=== PATIENT | female | born 1990 | race Hispanic/Latino ===

== ENCOUNTER 2022-06-08 17:29 | Inpatient (IN) | payer OTHER ==
[~2022-06-08] VITALS: Ht 152.4 cm; Wt 127.0 kg
[2022-06-08] MEDS ORDERED: ACETAMINOPHEN 500 MG TABLET PO ONE (19:30)
[2022-06-08] MEDS ORDERED: ONDANSETRON 4MG INJ IVP ONE (19:30)
[2022-06-08] MEDS ORDERED: 0.9%NACL 1000ML 1,000 ML IV ONE (19:30)
[2022-06-08 19:37] LABS: BASOPHILS % (AUTO) 0.2 % (0.0-5.0); EOSINOPHILS % (AUTO) 1.6 % (0.0-8.0); HEMATOCRIT 40.4 % (36-48); LYMPHOCYTES % (AUTO) 17.7 % (21.0-51.0); MEAN CORPUSCULAR HEMOGLOBIN 25.2 pg (27.0-33.0); MEAN CORPUSCULAR HGB CONC 31.4 g/dL (32.0-36.0); MEAN CORPUSCULAR VOLUME 80.3 fL (79-99); MONOCYTES % (AUTO) 4.2 % (3.0-13.0); NEUTROPHILS % (AUTO) 75.7 % (40.0-77.0); PLATELET COUNT (AUTO) 366 K/uL (130-400); RED BLOOD CELL COUNT(AUTO) 5.03 MIL/uL (4.00-5.50); RED CELL DISTRIBUTION WIDTH 13.7 % (11.0-15.5); WHITE BLOOD COUNT (AUTO) 13.2 K/uL (4.8-10.8)
[2022-06-08 19:43] LABS: APPEARANCE,URINE CLEAR (CLEAR); BILIRUBIN,URINE NEGATIVE (NEGATIVE); COLOR,URINE LIGHT-YELLOW (YELLOW); GLUCOSE, URINE (UA) NEGATIVE (NEGATIVE); KETONES,URINE NEGATIVE (NEGATIVE); LEUKOCYTE ESTERASE ,URINE NEGATIVE Leu/uL (NEGATIVE); NITRATE,URINE NEGATIVE (NEGATIVE); OCCULT BLOOD,URINE NEGATIVE (NEGATIVE); PROTEIN,URINE NEGATIVE (NEGATIVE); UROBILINOGEN,URINE 0.2 mg/dL (0.2-1.0)
[2022-06-08] MEDS ORDERED: ACETAMINOPHEN 325 MG TAB PO ONE (20:00)
[2022-06-08 20:07] LABS: ALBUMIN 3.5 g/dL (3.5-5.0); CREATININE 0.8 mg/dL (0.5-1.5); POTASSIUM 3.6 mmol/L (3.5-5.1)
[2022-06-09] MEDS ORDERED: MORPHINE 2 MG SYG IV PRN
[2022-06-09] MEDS ORDERED: ONDANSETRON 4MG INJ IV PRN
[2022-06-09] MEDS ORDERED: MORPHINE 4 MG SYG IV PRN
[2022-06-09] MEDS: LACTATED RINGERS 1000ML 1,000 ML IV SCH ×3 (00:31→16:39)
[2022-06-09 02:26] VITALS: BP 126/73
[2022-06-09 04:34] LABS: BASOPHILS % (AUTO) 0.4 % (0.0-5.0); EOSINOPHILS % (AUTO) 2.1 % (0.0-8.0); HEMATOCRIT 34.7 % (36-48); LYMPHOCYTES % (AUTO) 25.2 % (21.0-51.0); MEAN CORPUSCULAR HEMOGLOBIN 25.3 pg (27.0-33.0); MEAN CORPUSCULAR HGB CONC 31.1 g/dL (32.0-36.0); MEAN CORPUSCULAR VOLUME 81.3 fL (79-99); MONOCYTES % (AUTO) 5.2 % (3.0-13.0); NEUTROPHILS % (AUTO) 66.5 % (40.0-77.0); PLATELET COUNT (AUTO) 273 K/uL (130-400); RED BLOOD CELL COUNT(AUTO) 4.27 MIL/uL (4.00-5.50); RED CELL DISTRIBUTION WIDTH 13.8 % (11.0-15.5); WHITE BLOOD COUNT (AUTO) 9.6 K/uL (4.8-10.8)
[2022-06-09 04:49] LABS: INR 0.98 (0.85-1.15); PROTHROMBIN TIME 10.7 SEC (9.6-11.6)
[2022-06-09 04:50] LABS: PARTIAL THROMBOPLASTIN TIME 33.9 SEC (26.3-35.5)
[2022-06-09 05:02] LABS: CREATININE 0.6 mg/dL (0.5-1.5); MAGNESIUM 1.9 mg/dL (1.80-2.40); PHOSPHORUS 3.8 mg/dL (2.5-4.9); POTASSIUM 3.8 mmol/L (3.5-5.1)
[2022-06-09] MEDS: ZOSYN 3.375GM+NS 50ML 50 ML IV SCH ×3 (05:02→21:07)
[2022-06-09] MEDS: ACETAMINOPHEN 325 MG TAB PO PRN ×2 (07:13→21:15)
[2022-06-09 07:25] VITALS: BP 106/65
[2022-06-09] MEDS: FAMOTIDINE 20MG TAB PO SCH ×2 (09:22→21:07)
[2022-06-09 13:12] VITALS: BP 104/56
[2022-06-09 16:21] VITALS: BP 120/76
[2022-06-09] MEDS ORDERED: PSYLLIUM SEED 1 EACH PACKET PO PRN (18:00)
[2022-06-09 19:20] VITALS: BP 140/63
[2022-06-10 00:03] VITALS: BP 120/66
[2022-06-10 03:16] VITALS: BP 125/67
[2022-06-10] MEDS: ZOSYN 3.375GM+NS 50ML 50 ML IV SCH (04:50)
[2022-06-10 07:00] LABS: BASOPHILS % (AUTO) 0.4 % (0.0-5.0); EOSINOPHILS % (AUTO) 2.8 % (0.0-8.0); HEMATOCRIT 34.9 % (36-48); MEAN CORPUSCULAR HGB CONC 30.7 g/dL (32.0-36.0); MEAN CORPUSCULAR VOLUME 81.5 fL (79-99); MONOCYTES % (AUTO) 6.1 % (3.0-13.0); NEUTROPHILS % (AUTO) 62.3 % (40.0-77.0); PLATELET COUNT (AUTO) 287 K/uL (130-400); RED BLOOD CELL COUNT(AUTO) 4.28 MIL/uL (4.00-5.50); RED CELL DISTRIBUTION WIDTH 13.7 % (11.0-15.5); WHITE BLOOD COUNT (AUTO) 7.5 K/uL (4.8-10.8)
[2022-06-10 07:09] LABS: CREATININE 0.8 mg/dL (0.5-1.5); POTASSIUM 4.5 mmol/L (3.5-5.1)
[2022-06-10 07:16] VITALS: BP 101/76
[2022-06-10] MEDS: FAMOTIDINE 20MG TAB PO SCH (08:20)
[2022-06-10] MEDS ORDERED: AMOX1TAB16 PO (09:26)
[2022-06-10 11:53] VITALS: BP 109/66
[2022-06-10] MEDS: ACETAMINOPHEN 325 MG TAB PO PRN (12:52)
== END 2022-06-10 13:20 | disposition home or self-care (01) | DRG 392 ==
LOC: EDH 17:29 → EDHIP 17:30 → WSH 06-09 02:25
PROVIDERS: ADMIT Internal Medicine; ATTEND Internal Medicine
DX: K57.32 Diverticulitis of large intestine without perforation or abscess without bleeding (principal); Z68.43 Body mass index [BMI] 50.0-59.9, adult; Z20.822 Contact with and (suspected) exposure to COVID-19; E66.01 Morbid (severe) obesity due to excess calories; Z56.0 Unemployment, unspecified
CPT/HCPCS: 36415; 72192; 74150; 80048; 80053; 81003; 81025; 83690; 83735; 84100; 85025; 85610; 85730; 86850; 86900; 86901; 87040; 87077; 87186; 87635; 87804; 93005; C9803; G0378; J2405; J2543; J7030; J7120

== ENCOUNTER 2022-11-19 21:38 | Emergency (ER) | payer MEDICAID ==
[~2022-11-19 21:38] MED LIST: AMOX1TAB16 PO; IBUP-2070 PO; ONDA4TAB10 PO
== END 2022-11-19 23:12 | disposition left against medical advice (07) ==
LOC: EDH 21:38
DX: R51.9 Headache, unspecified (principal); Z53.21 Procedure and treatment not carried out due to patient leaving prior to being seen by health care provider

== ENCOUNTER 2023-03-15 10:29 | Emergency (ER) | payer MEDICAID ==
[~2023-03-15] VITALS: Ht 154.9 cm; Wt 122.5 kg
[2023-03-15 11:02] LABS: BASOPHILS # (AUTO) 0.03 K/uL (0.00-0.20); BASOPHILS % (AUTO) 0.4 % (0.0-5.0); EOSINOPHILS # (AUTO) 0.13 K/uL (0.00-0.70); EOSINOPHILS % (AUTO) 1.7 % (0.0-8.0); HEMATOCRIT 38.3 % (36-48); IMMATURE GRANULOCYTE ABSOLUTE 0.04 K/uL (0-1); LYMPHOCYTES # (AUTO) 2.2 K/uL (1.0-4.8); LYMPHOCYTES % (AUTO) 28.4 % (21.0-51.0); MEAN CORPUSCULAR HEMOGLOBIN 24.7 pg (27.0-33.0); MEAN CORPUSCULAR HGB CONC 31.1 g/dL (32.0-36.0); MEAN CORPUSCULAR VOLUME 79.6 fL (79-99); MONOCYTES # (AUTO) 0.4 K/uL (0.1-1.0); MONOCYTES % (AUTO) 5.1 % (3.0-13.0); NEUTROPHILS # (AUTO) 4.9 K/uL (1.8-7.7); NEUTROPHILS % (AUTO) 63.9 % (40.0-77.0); PLATELET COUNT (AUTO) 314 K/uL (130-400); RED BLOOD CELL COUNT(AUTO) 4.81 MIL/uL (4.00-5.50); RED CELL DISTRIBUTION WIDTH 13.9 % (11.0-15.5); WHITE BLOOD COUNT (AUTO) 7.7 K/uL (4.8-10.8)
[2023-03-15 11:05] LABS: BILIRUBIN,URINE NEGATIVE (NEGATIVE); COLOR,URINE YELLOW (YELLOW); GLUCOSE, URINE (UA) NEGATIVE (NEGATIVE); KETONES,URINE NEGATIVE (NEGATIVE); LEUKOCYTE ESTERASE ,URINE 25 Leu/uL (NEGATIVE); NITRATE,URINE NEGATIVE (NEGATIVE); OCCULT BLOOD,URINE NEGATIVE (NEGATIVE); PH,URINE 5.5 (5.0-8.0); PROTEIN,URINE NEGATIVE (NEGATIVE); UROBILINOGEN,URINE 0.2 mg/dL (0.2-1.0)
[2023-03-15 11:07] LABS: ADD UA MICROSCOPIC YES; APPEARANCE,URINE HAZY (CLEAR)
[2023-03-15 11:08] LABS: HCG,QUALITATIVE URINE NEGATIVE (NEGATIVE)
[2023-03-15 11:10] LABS: BACTERIA,URINE RARE /HPF (None Seen); MUCUS,URINE RARE LPF (None Seen); RBC,URINE 0-1 /HPF (0-1); SQUAMOUS EPITHELIAL CELL,UR MANY /HPF (0-2)
[2023-03-15 11:12] LABS: CREATININE 0.8 mg/dL (0.5-1.5); POTASSIUM 3.5 mmol/L (3.5-5.1)
[2023-03-15 11:22] LABS: ALBUMIN 3.1 g/dL (3.5-5.0); BILIRUBIN,TOTAL 0.3 mg/dL (0.2-1.0); TOTAL PROTEIN, SERUM 7.7 g/dL (6.0-8.3)
[2023-03-15] MEDS ORDERED: ONDANSETRON 4MG INJ IVP ONE (11:30)
[2023-03-15] MEDS ORDERED: 0.9%NACL 1000ML 1,000 ML IV ONE (11:30)
[2023-03-15] MEDS ORDERED: MORPHINE 4 MG SYG IVP ONE (11:30)
[2023-03-15 11:44] VITALS: BP 112/67; PULSE 77; RESP 16; O2SAT 100
[2023-03-15] MEDS ORDERED: IOHEXOL-350 75 ML VIAL IV ONE (11:50)
[2023-03-15] MEDS ORDERED: CEPH500B PO (12:36)
[2023-03-15] MEDS ORDERED: FAMO20TA8 PO (12:36)
== END 2023-03-15 12:58 | disposition home or self-care (01) ==
LOC: EDH 10:29
DX: K57.30 Diverticulosis of large intestine without perforation or abscess without bleeding (principal); N39.0 Urinary tract infection, site not specified; Z98.890 Other specified postprocedural states; Z79.899 Other long term (current) drug therapy
CPT/HCPCS: 99285; 74177; 96374; 96361; 96375; 82270; 82550; 83874; 84484; 80053; 83690; 85025; 86850; 86900; 86901; 83605; 81001; 81025; 36415; 93005; J7030; J2405; J2270; Q9967

== ENCOUNTER 2023-06-20 06:07 | Emergency (ER) | payer MEDICAID ==
[~2023-06-20] VITALS: Ht 154.9 cm; Wt 125.6 kg
[~2023-06-20 06:07] MED LIST changes: +CEPH500B PO; +FAMO20TA8 PO
[2023-06-20] MEDS ORDERED: ONDANSETRON 4MG INJ IVP ONE (06:30)
[2023-06-20 06:37] LABS: APPEARANCE,URINE CLEAR (CLEAR); BILIRUBIN,URINE NEGATIVE (NEGATIVE); COLOR,URINE LIGHT-YELLOW (YELLOW); GLUCOSE, URINE (UA) NEGATIVE (NEGATIVE); KETONES,URINE NEGATIVE (NEGATIVE); LEUKOCYTE ESTERASE ,URINE NEGATIVE Leu/uL (NEGATIVE); NITRATE,URINE NEGATIVE (NEGATIVE); OCCULT BLOOD,URINE NEGATIVE (NEGATIVE); PH,URINE 5.5 (5.0-8.0); PROTEIN,URINE NEGATIVE (NEGATIVE); UROBILINOGEN,URINE 0.2 mg/dL (0.2-1.0)
[2023-06-20 06:41] LABS: ADD UA MICROSCOPIC NO
[2023-06-20 06:42] LABS: BASOPHILS # (AUTO) 0.04 K/uL (0.00-0.20); BASOPHILS % (AUTO) 0.4 % (0.0-5.0); EOSINOPHILS # (AUTO) 0.14 K/uL (0.00-0.70); EOSINOPHILS % (AUTO) 1.3 % (0.0-8.0); HEMATOCRIT 41.4 % (36-48); IMMATURE GRANULOCYTE ABSOLUTE 0.07 K/uL (0-1); LYMPHOCYTES # (AUTO) 3.9 K/uL (1.0-4.8); LYMPHOCYTES % (AUTO) 36.2 % (21.0-51.0); MEAN CORPUSCULAR HEMOGLOBIN 25.1 pg (27.0-33.0); MEAN CORPUSCULAR HGB CONC 31.4 g/dL (32.0-36.0); MEAN CORPUSCULAR VOLUME 80.1 fL (79-99); MONOCYTES # (AUTO) 0.6 K/uL (0.1-1.0); MONOCYTES % (AUTO) 5.5 % (3.0-13.0); NEUTROPHILS % (AUTO) 55.9 % (40.0-77.0); PLATELET COUNT (AUTO) 350 K/uL (130-400); RED BLOOD CELL COUNT(AUTO) 5.17 MIL/uL (4.00-5.50); RED CELL DISTRIBUTION WIDTH 14.4 % (11.0-15.5); WHITE BLOOD COUNT (AUTO) 10.7 K/uL (4.8-10.8)
[2023-06-20 06:52] LABS: SARS-CoV-2, RNA, NAAT NEGATIVE SARS CoV-2 (NEGATIVE)
[2023-06-20 06:56] LABS: INFLUENZA TYPE A Negative For Type A (NEGATIVE); INFLUENZA TYPE B Negative For Type B (NEGATIVE)
[2023-06-20] MEDS ORDERED: DICYCLOMINE 20MG (10MG/ML) AMP IM STA (06:59)
[2023-06-20 07:00] LABS: ALBUMIN 3.2 g/dL (3.5-5.0); BILIRUBIN,TOTAL 0.4 mg/dL (0.2-1.0); CREATININE 0.7 mg/dL (0.5-1.5); POTASSIUM 3.7 mmol/L (3.5-5.1); TOTAL PROTEIN, SERUM 8.4 g/dL (6.0-8.3)
[2023-06-20] MEDS ORDERED: IOHEXOL-350 75 ML VIAL IV ONE (07:34)
[2023-06-20 08:09] VITALS: BP 133/79; PULSE 82; RESP 18; O2SAT 99
[2023-06-20] MEDS ORDERED: LOPE2 PO (09:45)
[2023-06-20] MEDS ORDERED: ONDA4TAB10 PO (09:45)
== END 2023-06-20 10:25 | disposition home or self-care (01) ==
LOC: EDH 06:07
DX: K52.9 Noninfective gastroenteritis and colitis, unspecified (principal); Z20.822 Contact with and (suspected) exposure to COVID-19
CPT/HCPCS: 99285; 74177; 96374; 87635; 80053; 83690; 85025; 87804 ×2; 81003; 81025; 36415; 96372; C9803; J2405; J0500; Q9967

== ENCOUNTER 2023-09-13 13:42 | Emergency (ER) | payer MEDICAID ==
[~2023-09-13] VITALS: Ht 154.9 cm; Wt 127.0 kg
[~2023-09-13 13:42] MED LIST changes: +LOPE2 PO
[2023-09-13 13:46] VITALS: BP 152/76; PULSE 97; RESP 18
[2023-09-13 14:29] LABS: BASOPHILS # (AUTO) 0.02 K/uL (0.00-0.20); BASOPHILS % (AUTO) 0.2 % (0.0-5.0); EOSINOPHILS % (AUTO) 1.2 % (0.0-8.0); HEMATOCRIT 37.8 % (36-48); IMMATURE GRANULOCYTE ABSOLUTE 0.03 K/uL (0-1); LYMPHOCYTES # (AUTO) 1.9 K/uL (1.0-4.8); LYMPHOCYTES % (AUTO) 23.8 % (21.0-51.0); MEAN CORPUSCULAR HEMOGLOBIN 24.2 pg (27.0-33.0); MEAN CORPUSCULAR HGB CONC 31.7 g/dL (32.0-36.0); MEAN CORPUSCULAR VOLUME 76.2 fL (79-99); MONOCYTES # (AUTO) 0.5 K/uL (0.1-1.0); MONOCYTES % (AUTO) 5.5 % (3.0-13.0); NEUTROPHILS # (AUTO) 5.6 K/uL (1.8-7.7); NEUTROPHILS % (AUTO) 68.9 % (40.0-77.0); PLATELET COUNT (AUTO) 321 K/uL (130-400); RED BLOOD CELL COUNT(AUTO) 4.96 MIL/uL (4.00-5.50); RED CELL DISTRIBUTION WIDTH 14.6 % (11.0-15.5); WHITE BLOOD COUNT (AUTO) 8.2 K/uL (4.8-10.8)
[2023-09-13] MEDS ORDERED: MORPHINE 2 MG SYG IVP ONE (14:30)
[2023-09-13] MEDS ORDERED: ONDANSETRON 4MG INJ IVP ONE (14:30)
[2023-09-13] MEDS ORDERED: 0.9%NACL 1000ML 1,000 ML IV ONE (14:30)
[2023-09-13 14:38] LABS: CREATININE 0.7 mg/dL (0.5-1.5); POTASSIUM 3.8 mmol/L (3.5-5.1)
[2023-09-13 14:43] LABS: BILIRUBIN,TOTAL 0.2 mg/dL (0.2-1.0); TOTAL PROTEIN, SERUM 7.5 g/dL (6.0-8.3)
== END 2023-09-13 18:38 | disposition left against medical advice (07) ==
LOC: EDH 13:42
DX: R10.32 Left lower quadrant pain (principal); Z53.21 Procedure and treatment not carried out due to patient leaving prior to being seen by health care provider
CPT/HCPCS: 36415; 80053; 83690; 84703; 85025; 99281

== ENCOUNTER 2023-12-09 00:11 | Emergency (ER) | payer MEDICAID ==
[~2023-12-09] VITALS: Ht 154.9 cm; Wt 129.7 kg
[~2023-12-09 00:11] MED LIST changes: +ONDA-243 PO; -ONDA4TAB10 PO
[2023-12-09 00:46] LABS: BASOPHILS # (AUTO) 0.04 K/uL (0.00-0.20); BASOPHILS % (AUTO) 0.4 % (0.0-5.0); EOSINOPHILS # (AUTO) 0.13 K/uL (0.00-0.70); EOSINOPHILS % (AUTO) 1.4 % (0.0-8.0); HEMATOCRIT 38.7 % (36-48); IMMATURE GRANULOCYTE ABSOLUTE 0.04 K/uL (0-1); LYMPHOCYTES # (AUTO) 2.4 K/uL (1.0-4.8); MEAN CORPUSCULAR VOLUME 77.4 fL (79-99); MONOCYTES # (AUTO) 0.6 K/uL (0.1-1.0); MONOCYTES % (AUTO) 6.3 % (3.0-13.0); NEUTROPHILS # (AUTO) 6.3 K/uL (1.8-7.7); NEUTROPHILS % (AUTO) 66.5 % (40.0-77.0); PLATELET COUNT (AUTO) 359 K/uL (130-400); RED CELL DISTRIBUTION WIDTH 14.4 % (11.0-15.5); WHITE BLOOD COUNT (AUTO) 9.5 K/uL (4.8-10.8)
[2023-12-09 00:48] LABS: ADD UA MICROSCOPIC YES; APPEARANCE,URINE CLOUDY (CLEAR); BILIRUBIN,URINE NEGATIVE (NEGATIVE); COLOR,URINE YELLOW (YELLOW); GLUCOSE, URINE (UA) NEGATIVE (NEGATIVE); KETONES,URINE NEGATIVE (NEGATIVE); LEUKOCYTE ESTERASE ,URINE NEGATIVE Leu/uL (NEGATIVE); NITRATE,URINE NEGATIVE (NEGATIVE); OCCULT BLOOD,URINE NEGATIVE (NEGATIVE); PROTEIN,URINE NEGATIVE (NEGATIVE)
[2023-12-09 00:49] LABS: BACTERIA,URINE FEW /HPF (None Seen); HCG,QUALITATIVE URINE NEGATIVE (NEGATIVE); MUCUS,URINE RARE LPF (None Seen); SQUAMOUS EPITHELIAL CELL,UR MANY /HPF (0-2)
[2023-12-09 01:05] LABS: CREATININE 0.8 mg/dL (0.5-1.0); POTASSIUM 3.9 mmol/L (3.5-5.1)
[2023-12-09 01:06] LABS: ALBUMIN 3.3 g/dL (3.5-5.0); BILIRUBIN,TOTAL 0.2 mg/dL (0.2-1.0); TOTAL PROTEIN, SERUM 8.2 g/dL (6.0-8.3)
[2023-12-09] MEDS: ONDANSETRON 4MG INJ IVP ONE (01:26)
[2023-12-09] MEDS: PANTOPRAZOLE 40 MG/VIAL IVP ONE (01:26)
[2023-12-09] MEDS: 0.9%NACL 1000ML 1,000 ML IV ONE (01:26)
[2023-12-09] MEDS: MORPHINE 4 MG SYG IVP ONE ×2 (01:27→06:18)
[2023-12-09] MEDS ORDERED: IOHEXOL 350 MG/ML 100ML INFUS..BTL IV ONE (01:38)
[2023-12-09 05:20] VITALS: BP 142/70; PULSE 88; RESP 20; O2SAT 97
[2023-12-09] MEDS: MORPHINE 5 MG/ML VIAL (5MG OR GREATER DOSE) ONE (06:18)
== END 2023-12-09 06:40 | disposition home or self-care (01) ==
LOC: EDH 00:11
DX: R10.30 Lower abdominal pain, unspecified (principal); K57.30 Diverticulosis of large intestine without perforation or abscess without bleeding
CPT/HCPCS: 99285; 74177; 96374; 96375; 80053; 83690; 85025; 81001; 81025; 36415; 96376; J2270 ×2; J7030; J2405; Q9967; S0164; C9113

== ENCOUNTER 2024-03-12 18:28 | Emergency (ER) | payer MEDICAID ==
[~2024-03-12] VITALS: Ht 154.9 cm; Wt 129.3 kg
[2024-03-12 18:59] LABS: BASOPHILS # (AUTO) 0.03 K/uL (0.00-0.20); BASOPHILS % (AUTO) 0.3 % (0.0-5.0); EOSINOPHILS # (AUTO) 0.16 K/uL (0.00-0.70); EOSINOPHILS % (AUTO) 1.6 % (0.0-8.0); HEMATOCRIT 38.7 % (36-48); IMMATURE GRANULOCYTE ABSOLUTE 0.05 K/uL (0-1); LYMPHOCYTES # (AUTO) 2.6 K/uL (1.0-4.8); LYMPHOCYTES % (AUTO) 25.8 % (21.0-51.0); MEAN CORPUSCULAR HEMOGLOBIN 22.8 pg (27.0-33.0); MEAN CORPUSCULAR HGB CONC 29.7 g/dL (32.0-36.0); MEAN CORPUSCULAR VOLUME 76.6 fL (79-99); MONOCYTES # (AUTO) 0.6 K/uL (0.1-1.0); MONOCYTES % (AUTO) 5.4 % (3.0-13.0); NEUTROPHILS # (AUTO) 6.8 K/uL (1.8-7.7); NEUTROPHILS % (AUTO) 66.4 % (40.0-77.0); PLATELET COUNT (AUTO) 373 K/uL (130-400); RED BLOOD CELL COUNT(AUTO) 5.05 MIL/uL (4.00-5.50); RED CELL DISTRIBUTION WIDTH 14.6 % (11.0-15.5); WHITE BLOOD COUNT (AUTO) 10.2 K/uL (4.8-10.8)
[2024-03-12 19:09] LABS: CREATININE 0.9 mg/dL (0.5-1.0)
[2024-03-12 19:13] LABS: ALBUMIN 3.2 g/dL (3.5-5.0); BILIRUBIN,DIRECT 0.1 mg/dL (0.0-0.3); BILIRUBIN,TOTAL 0.2 mg/dL (0.2-1.0)
[2024-03-12 20:22] LABS: APPEARANCE,URINE CLOUDY (CLEAR); BILIRUBIN,URINE NEGATIVE (NEGATIVE); COLOR,URINE LIGHT-YELLOW (YELLOW); GLUCOSE, URINE (UA) NEGATIVE (NEGATIVE); KETONES,URINE NEGATIVE (NEGATIVE); LEUKOCYTE ESTERASE ,URINE 25 Leu/uL (NEGATIVE); NITRATE,URINE NEGATIVE (NEGATIVE); OCCULT BLOOD,URINE SMALL (NEGATIVE); PH,URINE 5.5 (5.0-8.0); PROTEIN,URINE NEGATIVE (NEGATIVE); UROBILINOGEN,URINE 0.2 mg/dL (0.2-1.0)
[2024-03-12 20:27] LABS: ADD UA MICROSCOPIC YES
[2024-03-12 20:28] LABS: MUCUS,URINE RARE LPF (None Seen); SQUAMOUS EPITHELIAL CELL,UR FEW /HPF (0-2); YEAST,URINE BUDDING RARE /HPF (None Seen)
[2024-03-12] MEDS: ONDANSETRON ODT 4MG TAB SL SCH (21:15)
[2024-03-12] MEDS: ketOROlac 30MG VIAL (30MG/ML) IM ONE (21:16)
[2024-03-12] MEDS ORDERED: METR375C2 PO (21:49)
[2024-03-12] MEDS ORDERED: CIPR-278 PO (21:49)
[2024-03-12] MEDS: cefTRIAXone 1G VIAL IM ONE (22:00)
[2024-03-12 22:02] VITALS: BP 131/76; PULSE 84; RESP 18; TEMP 98.1; O2SAT 98
== END 2024-03-12 22:10 | disposition home or self-care (01) ==
LOC: EDH 18:28
DX: K57.32 Diverticulitis of large intestine without perforation or abscess without bleeding (principal); N39.0 Urinary tract infection, site not specified; R19.7 Diarrhea, unspecified; Z79.899 Other long term (current) drug therapy; Z98.890 Other specified postprocedural states
CPT/HCPCS: 99285; 74176; 80076; 80048; 84703; 85025; 81001; 36415; 96372 ×2; J0696; J1885

== ENCOUNTER 2024-06-20 09:29 | Emergency (ER) | payer SELFPAY ==
[~2024-06-20] VITALS: Ht 154.9 cm; Wt 133.9 kg
[~2024-06-20 09:29] MED LIST changes: +CIPR-278 PO; +METR375C2 PO
[2024-06-20] MEDS: acetaMINOPHEN 500 MG TABLET PO ONE (09:51)
--- NOTE | 2024-06-20 10:18 | HMCIMG ---
ELBOW COMP 3+VWS RT REASON: fall TECHNIQUE: 3 views were obtained. FINDINGS: There is no evidence of fracture or dislocation. There is no joint effusion. The soft tissues appear unremarkable. There is no evidence of a radiopaque foreign body. IMPRESSION: No acute findings.
[2024-06-20] MEDS ORDERED: NAPR-1505 PO (10:22)
--- NOTE | 2024-06-20 10:22 | ERN ---
General Chief Complaint: Upper Extremity Pain/Injury Stated Complaint: Right Arm INJURY Time Seen by MD: 09:30 Source: patient History of Present Illness Initial Comments Patient is a 33-year-old female coming in to be evaluated for right upper extremity pain. Patient is a bit earlier today she tripped landing on her outstretched hand. States that there is a discomfort in her right elbow as well as with the right wrist. Allergies: Coded Allergies: No Known Drug Allergies (Unverified Allergy, Unknown, 06/08/22) Home Meds Active Scripts Metronidazole (Flagyl) 375 Mg Capsule, 375 MG PO BID for 7 Days, #14 CAP Prov:SHANIQUE HELLER 03/12/24 Ciprofloxacin HCl (Cipro) 500 Mg Tablet, 1 TAB PO BID for 7 Days, #14 TAB 0 Refills Prov:SHANIQUE HELLER 03/12/24 Loperamide HCl (Imodium) 2 Mg Cap, 2 MG PO TID PRN for DIARRHEA, #15 CAP 0 Refills Prov:LISA LIZARRAGA MD 06/20/23 Ondansetron (Ondansetron Odt) 4 Mg Tab.rapdis, 4 MG PO TID PRN for NAUSEA, #30 TAB 0 Refills Prov:LISA LIZARRAGA MD 06/20/23 Famotidine (Famotidine) 20 Mg Tablet, 20 MG PO BID, #30 TAB Prov:CARL TOMAS 03/15/23 Cephalexin Monohydrate (Keflex) 500 Mg Cap, 500 MG PO QID for 7 Days, #28 CAP Prov:CARL TOMAS 03/15/23 Amoxicillin/Potassium Clav (Amox Tr-K Clv 875-125 mg Tab) 1 Each Tablet, 1 EACH PO BID for 7 Days, #14 TAB Prov:MEHREEN ROWLAND MD 09/09/22 Ondansetron (Ondansetron Odt) 4 Mg Tab.rapdis, 4 MG PO TID for NAUSEA, #15 TAB Prov:MEHREEN ROWLAND MD 09/09/22 Ibuprofen (Ibuprofen) 600 Mg Tablet, 600 MG PO Q6H PRN for PAIN, #30 TAB Prov:MEHREEN ROWLAND MD 09/09/22 Amoxicillin/Potassium Clav (Amox Tr-K Clv 875-125 mg Tab) 1 Each Tablet, 1 EACH PO BID for 7 Days, #14 TAB Prov:VIOLETTE AKUFMAN BALTAZAR 06/10/22 Past Medical History Past Medical History: Other Medical History Other: GASTRITIS Past Surgical History: Family History Family History: HTN Social History Social History: Negative, Lives with family Female( History) History: Not Applicable LMP: May 27, 2024 : 5 Para: 4 Aborts: 1 ROS Dictation CONSTITUTIONAL: No chills, no fever, no weakness, no diaphoresis, no malaise. HEAD/FACE: No signs of trauma. EENT: No eye pain, no blurred vision, no tearing, no double vision, no ear pain, no ear discharge, no nose pain, no nasal congestion, no throat pain, no throat swelling, no mouth pain. RESPIRATORY: No cough, no orthopnea, no SOB, no stridor, no wheezing. CARDIOVASCULAR: No chest pain, no edema, no palpitations, no syncope. GASTROINTESTINAL/ABDOMINAL: No abdominal pain, no constipation, no diarrhea, no nausea, no vomiting. GENITOURINARY: No abnormal discharge, no dysuria, no frequent urination, no hematuria. No complaints of pain in the genitals. MUSCULOSKELETAL: No back pain, no gout, joint pain, joint swelling, muscle pain, muscle stiffness, no neck pain. INTEGUMENTARY: No change in color, no change in hair/nails, no dryness, no lesion, no lumps, no rash. NEUROLOGICAL/PSYCH: No anxiety, not depressed, no emotional problem, no headache, no numbness, no pre-existing deficit, no history of seizures, no tremors, no weakness. HEMATOLOGIC/LYMPHATIC: Not anemic, no history of blood clots, no apparent bleeding, no bruising, glands not swollen. All Systems Negative, Except as Noted. Physical Exam Physical Exam Dictation VITAL SIGNS: Reviewed. GENERAL APPEARANCE: Alert, oriented x3, no acute distress, obese. HEAD AND FACE: Non-traumatic. EYES: PERRL, pink conjunctivas, eyelid no trauma, anterior chamber clear. EARS: Pinnas intact and no signs of trauma or erythema. Ear canals clear and no discharge. TMs no erythema. NOSE: No discharge, no bleeding. OROPHARYNX: Mouth normal, teeth no caries, tongue pink. Pharynx clear, no erythema. Tonsils no exudates, no abscesses noted. Mucous membrane moist. NECK: Supple, non-tender, no thyromegaly, no masses, no JVD, no bruits. BREAST: Deferred. CHEST: No tenderness, no crepitus, no paradoxical movement, no retractions. LUNGS: Clear, well-ventilated, symmetric, no rales, no wheezing, no rhonchi, no stridor, good breath sounds bilaterally. HEART: Regular rate, regular rhythm, no murmur, no gallops. VASCULAR: No peripheral edema. ABDOMEN: Soft, positive bowel sounds, nondistended, no guarding, nontender, no rebound, no masses no hepatomegaly, no splenomegaly, no Crowder's sign, no hernias. RECTAL: Deferred. GENITAL: Deferred. NEUROLOGICAL: Normal speech, gross motor function intact, gross sensory function intact. MUSCULOSKELETAL: Neck nontender, full range of motion, back nontender, full range of motion. EXTREMITIES: Nontender, full range of motion. Right wrist pain right elbow pa in, pain on flexion and extension. SKIN: Color pink, dry, no turgor, no rash, no lacerations, no abrasions, no contusions. LYMPHATICS: Deferred. Results Laboratory and Microbiology Labs Reviewed?: Yes EKG/XRAY/US/CT/MRI X-RAY Comment X-ray right wrist-possible radial fracture X-ray right elbow-NAD MDM MDM: Differential diagnosis: Right wrist fracture, right elbow fracture, elbow strain, Patient is a 33-year-old female coming in to be evaluated for right upper extremity pain. X-ray disclose the possible right radial fracture. Of the elbow within normal limits. Patient will be discharged with a diagnosis of radial fracture. Splint and sling are placed right upper extremity. Patient will be referred to PCP and/or airways control specialist. ED Course Orders Procedure Category Date Status Time Elbow Comp 3+Vws Rt RAD 06/20/24 Taken 09: Wrist Comp 3+Vws Rt RAD 06/20/24 Taken 09: Acetaminophen 500mg PHA 06/20/24 Complete Tab (Tylenol 500mg T 10:00 Current Medications Medications (Trade) Dose Ordered Sig/Rosas Route PRN Reason Start Time Stop Time Status Last Admin Dose Admin Acetaminophen (TYLenol 500MG TAB) 1,000 mg ONCE ONCE PO 06/20/24 10:00 06/20/24 10:01 DC 06/20/24 09:51 Vital Signs Date Time Temp Pulse Resp B/P (MAP) Pulse Ox O2 Delivery O2 Flow Rate FiO2 06/20/24 09:30 98.1 87 16 126/82 0 06/20/24 09:30 98.1 87 16 126/82 98 Room Air* 0 21 DX & DISP Disposition: Discharge Departure Impression: Primary Impression: Radial styloid fracture Additional Impression: Fall Condition: Stable Scripts Naproxen (Naproxen) 375 Mg Tablet. 375 MG PO BID for 7 Days, #14 TAB Prov: TOM DARDEN MD 06/20/24 Additional Instructions: FOLLOW-UP WITH PRIMARY CARE PROVIDER IN 1 TO 2 DAYS. TAKE MEDICATIONS DIRECTED HERE IN THE EMERGENCY ROOM. OKAY TO CONTINUE HOME MEDICATIONS UNLESS OTHERWISE DISCUSSED DURING YOUR VISIT IN THE EMERGENCY ROOM TODAY. RETURN TO YOUR NEAREST EMERGENCY ROOM IF SYMPTOMS WORSEN OR IF THERE IS NO IMPROVEMENT. CALL 911 IF YOU NEED IMMEDIATE ASSISTANCE. TAKE TYLENOL [id number] NEEDED AND IF NO CONTRAINDICATIONS ARE PRESENT. INCREASE ORAL HYDRATION. A WOUND CULTURE OR URINE CULTURE WAS ORDERED HERE IN THE EMERGENCY ROOM DEPARTMENT PLEASE FOLLOW-UP WITH PRIMARY CARE PROVIDER AND ADVISE THEM TO GET REPEAT PORTS FROM OUR FACILITY. IF YOU HAD ANY YUNG WRAP/SPLINTS THAT WERE APPLIED HERE, PLEASE DO NOT REMOVE THEM UNTIL YOU SEE YOUR PRIMARY CARE OR SPECIALTY. Referrals: Referrals: NONE (PCP) ZIGGY WARNER MD, LUIS A MD Time of Disposition: 10:21 TOM DARDEN MD Jun 20, 2024 10:22
[2024-06-20 10:31] VITALS: BP 129/75; PULSE 78; RESP 16; TEMP 98.1; O2SAT 98
== END 2024-06-20 10:34 | disposition home or self-care (01) ==
LOC: EDH 09:29
DX: S52.511A Displaced fracture of right radial styloid process, initial encounter for closed fracture (principal); W01.0XXA Fall on same level from slipping, tripping and stumbling without subsequent striking against object, initial encounter; Y93.89 Activity, other specified; Y92.89 Other specified places as the place of occurrence of the external cause; Y99.8 Other external cause status
CPT/HCPCS: 29125; 73080; 73110; 99284

== ENCOUNTER 2025-05-01 19:47 | Emergency (ER) | payer MEDICAID ==
[~2025-05-01] VITALS: Ht 154.9 cm; Wt 129.3 kg
[~2025-05-01 19:47] MED LIST changes: +IBUP-1492 PO; -IBUP-2070 PO; +NAPR-1505 PO
--- NOTE | 2025-05-01 19:51 | NUR ---
UA CUP PROVIDED
[2025-05-01 20:23] LABS: IMMATURE GRANULOCYTE ABSOLUTE 0.04 K/uL (0-1); NUCLEATED RED BLOOD CELLS 0.0 % (0.0-0.19); PLATELET COUNT (AUTO) 362 K/uL (130-400); RED BLOOD CELL COUNT(AUTO) 4.68 MIL/uL (4.00-5.50); RED CELL DISTRIBUTION WIDTH 17.2 % (11.0-15.5); WHITE BLOOD COUNT (AUTO) 8.7 K/uL (4.8-10.8)
[2025-05-01 20:26] LABS: APPEARANCE,URINE CLOUDY (CLEAR); GLUCOSE, URINE (UA) NEGATIVE (NEGATIVE); LEUKOCYTE ESTERASE ,URINE 25 Leu/uL (NEGATIVE); NITRATE,URINE NEGATIVE (NEGATIVE); OCCULT BLOOD,URINE NEGATIVE (NEGATIVE)
[2025-05-01 20:27] LABS: ADD UA MICROSCOPIC YES
[2025-05-01 20:29] LABS: SQUAMOUS EPITHELIAL CELL,UR FEW /HPF (0-2)
[2025-05-01 20:31] LABS: CREATININE 1.0 mg/dL (0.5-1.0); GLOMERULAR FILTR. RATE CALC 77.0 mL/min (>90); GLUCOSE,RANDOM 89.0 mg/dL (70-105); HCG,QUALITATIVE URINE NEGATIVE (NEGATIVE); SODIUM SERUM 138.0 mmol/L (136-145); UREA NITROGEN, BLOOD 16.0 mg/dL (7-18)
[2025-05-01 20:56] LABS: ASPARTATE AMINOTRANSFERASE 17 U/L (10-37); TOTAL PROTEIN, SERUM 7.5 g/dL (6.0-8.3)
[2025-05-01] MEDS ORDERED: KETO10TA2 PO (21:21)
--- NOTE | 2025-05-01 21:22 | ERN ---
ED Note History of Present Illness Stated Complaint: ABD PAIN Chief Complaint: Abdominal Pain Time Seen by MD: 19:48 Time Seen by Midlevel: 19:51 Dictation: 34-year-old female with no past medical history coming in with complaints of right upper quadrant pain and epigastric pain this morning. He has been denying has a surgical history. Denies any fever, nausea vomiting or diarrhea. LMP states was two weeks ago. Allergies: Coded Allergies: No Known Drug Allergies (Unverified Allergy, Unknown, 06/08/22) Home Meds Active Scripts Naproxen (Naproxen) 375 Mg Tablet.dr, 375 MG PO BID for 7 Days, #14 TAB Prov:TOM DARDEN MD 06/20/24 Metronidazole (Flagyl) 375 Mg Capsule, 375 MG PO BID for 7 Days, #14 CAP Prov:SHANIQUE HELLER 03/12/24 Ciprofloxacin HCl (Cipro) 500 Mg Tablet, 1 TAB PO BID for 7 Days, #14 TAB 0 Refills Prov:SHANIQUE HELLER 03/12/24 Loperamide HCl (Imodium) 2 Mg Cap, 2 MG PO TID PRN for DIARRHEA, #15 CAP 0 Refills Prov:LISA LIZARRAGA MD 06/20/23 Ondansetron (Ondansetron Odt) 4 Mg Tab.rapdis, 4 MG PO TID PRN for NAUSEA, #30 TAB 0 Refills Prov:LISA LIZARRAGA MD 06/20/23 Famotidine (Famotidine) 20 Mg Tablet, 20 MG PO BID, #30 TAB Prov:CARL TOMASP 03/15/23 Cephalexin Monohydrate (Keflex) 500 Mg Cap, 500 MG PO QID for 7 Days, #28 CAP Prov:CARL TOMAS 03/15/23 Amoxicillin/Potassium Clav (Amox Tr-K Clv 875-125 mg Tab) 1 Each Tablet, 1 EACH PO BID for 7 Days, #14 TAB Prov:MEHREEN ROWLAND MD 09/09/22 Ondansetron (Ondansetron Odt) 4 Mg Tab.rapdis, 4 MG PO TID for NAUSEA, #15 TAB Prov:MEHREEN ROWLAND MD 09/09/22 Ibuprofen (Ibuprofen) 600 Mg Tablet, 600 MG PO Q6H PRN for PAIN, #30 TAB Prov:MEHREEN ROWLAND MD 09/09/22 Amoxicillin/Potassium Clav (Amox Tr-K Clv 875-125 mg Tab) 1 Each Tablet, 1 EACH PO BID for 7 Days, #14 TAB Prov:VIOLETTE KAUFMAN AGACNP 06/10/22 Past Medical History Past Medical History: Hypertension, Other Additional Past Medical Hx: GASTRITIS Surgical History: Other, Surgical History Other: COLON RESECTION Family History: HTN Social History: Negative, Lives with family History: Not Applicable LMP: Apr 18, 2025 : 5 Para: 4 Aborts: 1 Review of System Dictation Constitutional: Negative for fever,chills, and weight loss Eyes: Negative for injury, pain,redness, and discharge ENT: Negative for injury,pain or swelling Cardiovascular: Negative for chest pain, palpitations, and edema Respiratory: Negative for shortness of breath, cough, and wheezing, Abdomen/GI: Epigastric pain, right upper quadrant pain Back: Negative for injury and pain : Negative for injury, bleeding and discharge MS/Extremity: Negative for injury and deformity Skin: Negative for rash, and discoloration Neuro: Negative for headache, weakness, numbness, tingling, and seizure Psych: Negative for suicide ideation, homicidal ideation, and hallucinations Review of Systems: was completed Initial Vital Sign VS Vital Signs Date Time Temp Pulse Resp B/P (MAP) Pulse Ox O2 Delivery O2 Flow Rate FiO2 05/01/25 19:48 97.9 90 20 127/76 99 Room Air Physical Exam Dictation General: awake, alert, NAD Head/Face: Normocephalic, atraumatic Eyes: PERRL, EOMI, vision at baseline ENT: oral cavity clear, TMs clear, no signs of infection Neck: Trachea midline, supple, no nuchal rigidity Cardiovascular: RRR, normal S1/S2, No MRGs, no JVD Respiratory: CTAB, no respiratory distress, No rales or wheezes Abdomen: Soft, non-tender, non-distended, normal bowel sounds, no guarding or rebound. Negative Crowder sign Skin: Warm, dry, normal turgor, no rash MS/Extremity: Pulses equal, no cyanosis, neurovascular intact, FROM Neuro: COAx4, GCS 15, strength 5/5, CN 2-12 intact, normal cerebellar exam, normal gait, Psych: Normal behavior, mood, and affect normal Results (Laboratory/Radiology) Laboratory/Radiology Laboratory Tests Test 05/01/25 20:03 White Blood Count 8.7 K/uL (4.8-10.8) Red Blood Count 4.68 MIL/uL (4.00-5.50) Hemoglobin 9.4 g/dL (12.0-16.0) L Hematocrit 33.1 % (36-48) L Mean Corpuscular Volume 70.7 fL (79-99) L Mean Corpuscular Hemoglobin 20.1 pg (27.0-33.0) L Mean Corpuscular Hemoglobin Concent 28.4 g/dL (32.0-36.0) L Red Cell Distribution Width 17.2 % (11.0-15.5) H Platelet Count 362 K/uL (130-400) Mean Platelet Volume 9.5 fL (7.5-10.5) Immature Granulocyte % (Auto) 0.5 % (0-1) Neutrophils (%) (Auto) 59.4 % (40.0-77.0) Lymphocytes (%) (Auto) 31.6 % (21.0-51.0) Monocytes (%) (Auto) 5.7 % (3.0-13.0) Eosinophils (%) (Auto) 2.5 % (0.0-8.0) Basophils (%) (Auto) 0.3 % (0.0-5.0) Neutrophils # (Auto) 5.1 K/uL (1.8-7.7) Lymphocytes # (Auto) 2.7 K/uL (1.0-4.8) Monocytes # (Auto) 0.5 K/uL (0.1-1.0) Eosinophils # (Auto) 0.22 K/uL (0.00-0.70) Basophils # (Auto) 0.03 K/uL (0.00-0.20) Absolute Immature Granulocyte (auto 0.04 K/uL (0-1) Nucleated Red Blood Cells 0.0 % (0.0-0.19) Red Blood Cell Morphology See comments Urine Color YELLOW (YELLOW) Urine Appearance CLOUDY (CLEAR) H Urine pH 5.5 (5.0-8.0) Urine Specific [place] 1.033 (1.001-1.031) Urine Protein NEGATIVE mg/dL (NEGATIVE) Urine Glucose (UA) NEGATIVE mg/dL (NEGATIVE) Urine Ketones 5 mg/dL (NEGATIVE) H Urine Occult Blood NEGATIVE (NEGATIVE) Urine Nitrate NEGATIVE (NEGATIVE) Urine Bilirubin NEGATIVE mg/dL (NEGATIVE) Urine Urobilinogen 2.0 mg/dL (0.2-1.0) H Urine Leukocyte Esterase 25 Gerhard/uL (NEGATIVE) H Urine RBC 2-5 /HPF (0-1) H Urine WBC 2-5 /HPF (0-1) H Urine Squamous Epithelial Cells FEW /HPF (0-2) Urine Bacteria RARE /HPF (None Seen) Urine HCG, Qualitative NEGATIVE (NEGATIVE) Sodium Level 138 mmol/L (136-145) Potassium Level 3.9 mmol/L (3.5-5.1) Chloride Level 101 mmol/L (101-111) Carbon Dioxide Level 29 mmol/L (21-32) Blood Urea Nitrogen 16 mg/dL (7-18) Creatinine 1.0 mg/dL (0.5-1.0) Glomerular Filtration Rate Calc 77 mL/min (>90) Random Glucose 89 mg/dL (70-105) Total Calcium 8.4 mg/dL (8.5-10.1) L Total Bilirubin 0.1 mg/dL (0.2-1.0) L Direct Bilirubin < 0.1 mg/dL (0.0-0.3) Aspartate Amino Transf (AST/SGOT) 17 U/L (10-37) Alanine Aminotransferase (ALT/SGPT) 27 U/L (12-78) Alkaline Phosphatase 105 U/L (50-136) Total Protein 7.5 g/dL (6.0-8.3) Albumin 2.9 g/dL (3.5-5.0) L Lipase 30 U/L (16-77) Labs Reviewed?: Yes ED Course ED Course Orders Procedure Category Date Status Time Vital Signs Per CPOE 05/01/25 Transmitted Routine 19:49 Saline Lock Iv CPOE 05/01/25 Transmitted 19:49 Cbc With Differential LAB 05/01/25 Complete 19:49 Lipase LAB 05/01/25 Complete 19:49 Urinalysis Profile LAB 05/01/25 Complete 19:49 Basic Metabolic Panel LAB 05/01/25 Complete 19:49 ,Urine Test LAB 05/01/25 Complete 19:49 Hepatic Function Panel LAB 05/01/25 Complete 20:38 Us Abdominal Ruq\Ltd US 05/01/25 Taken 20:38 Ondansetron 4mg Inj PHA 05/01/25 Complete (Zofran 4mg Inj) 21:00 Ketorolac PHA 05/01/25 Complete Tromethamine 15mg/Ml 21:00 Famotidine 20mg Vial PHA 05/01/25 Complete (Pepcid 20mg Vial) 21:00 Current Medications Medications (Trade) Dose Ordered Sig/Rosas Route PRN Reason Start Time Stop Time Status Last Admin Dose Admin Famotidine (Pepcid 20mg Vial) 20 mg ONCE ONCE IV 05/01/25 21:00 05/01/25 21:01 DC Ketorolac Tromethamine (toRADol) 15 mg ONCE ONCE IV 05/01/25 21:00 05/01/25 21:01 DC Ondansetron HCl (zoFRAN 4MG INJ) 4 mg ONCE ONCE IVP 05/01/25 21:00 05/01/25 21:01 DC Vital Signs Date Time Temp Pulse Resp B/P (MAP) Pulse Ox O2 Delivery O2 Flow Rate FiO2 05/01/25 19:48 97.9 90 20 127/76 99 Room Air Medical Decision Making MDM MDM:34-year-old female with no past medical history coming in with complaints of right upper quadrant pain and epigastric pain this morning. He has been denying has a surgical history. Denies any fever, nausea vomiting or diarrhea. LMP states was two weeks ago. CBC shows no leukocytosis, microcytic anemia, hemoglobin of 9 hematocrit of 33. No thrombocytopenia. Chemistry shows no electrolyte abnormality. Normal kidney function. No transaminitis. T bili and direct bili within normal range. Normal lipase. Preliminary report of the ultrasound shows gallstones, increased echogenicity of the liver, gallbladder wall 3 mm, CBD 6 mm. Discussed findings with the patient. Discussed with the patient more than likely epigastric pain related to the gallbladder stones. Educated she needs to avoid any spicy, greasy foods. Follow up with PCP and or with the a general surgeon outpatient. Educated on signs and symptoms of when to return back to the emergency room. Patient verbalized understanding, answered all questions. Differential diagnosis: Pancreatitis, gastritis, cholecystitis, cholelithiasis Rationale: Tests considered and ordered secondary to shared decision making include: Previous outside records reviewed: Old ER visits. Risk of complication and/or morbidity or mortality of patient management: None Medications-Per medication reconciliation Need for hospitalization: Patient does not meet criteria for hospitalization. Need for emergency major/minor surgery: No There are no social concerns with this patient. Prescription drug management Prescriptions will include symptomatic care Patient's prior external medical records from other ER visits were reviewed by me as indicated. Prior testing and results from previous visits were reviewed. Prior tests were taken into account with medical decision making and resource utilization, independent historian/historians were used to obtain complete medical history. I independently interpreted the test that were performed, results were reviewed by me and considered findings on radiology if ordered. Medical management and examination interpretation discussions were had by me with other qualified healthcare professionals as indicated for the patient's care. DX & DISP Disposition: Discharge Departure Impression: Primary Impression: Cholelithiasis Condition: Stable Scripts Ketorolac Tromethamine (Ketorolac Tromethamine) 10 Mg Tablet 1 TAB PO Q6HPRN PRN for pain for 3 Days, #12 TAB 0 Refills Prov: NESTOR SALAZAR CNP 05/01/25 Additional Instructions: Your ultrasound shows a you have gallbladder stones. Avoid eating any spicy, greasy foods. Follow up with your PCP and with a general surgeon for further evaluation. Return to the hospital if you develop severe pain, fever, nausea and vomiting. Referrals: SELF,REFERRAL (PCP) Time of Disposition: 21:20 I have reviewed the case, and I agree with, Diagnosis and Plan NESTOR SALAZAR CNP May 01, 2025 21:22
[2025-05-01] MEDS: FAMOTIDINE 20MG VIAL IV ONE (21:23)
--- NOTE | 2025-05-01 22:05 | HMCIMG ---
EXAMINATION: ULTRASOUND OF THE ABDOMEN (LIMITED) WITH COLOR DOPPLER. CLINICAL HISTORY: Right upper quadrant pain. COMPARISON: None. TECHNIQUE: Real-time grayscale ultrasound images of the abdomen. In addition, color Doppler is medically necessary to evaluate vascularity and blood flow. FINDINGS: Liver: Bulky in caliber, the right hepatic lobe measures 20.1 cm in the craniocaudal dimension. There is increased echogenicity of the hepatic parenchyma. There is no focal hepatic abnormality or intrahepatic biliary ductal dilatation. There is a normal spectral Doppler of the main portal vein. Gallbladder: Partially contracted with normal wall thickness (0.28 cm). No hyperemia or pericholecystic free fluid. There are multiple calculi, the largest measures 1.4 cm. The common bile duct is normal in caliber, measuring 0.60 cm. Pancreas: Normal in caliber and echotexture. No calcification or dilated pancreatic duct. The right kidney is normal in caliber; the right kidney measures 9.4 x 4.7 x 4.9 cm in craniocaudal, AP, and transverse dimensions, respectively. There is normal renal cortical thickness and cortical echogenicity. There is no renal calculus or hydronephrosis. IMPRESSION: Hepatomegaly with hepatic steatosis. Cholelithiasis. No cholecystitis. /[place]
[2025-05-01 22:19] VITALS: BP 108/46; PULSE 78; RESP 18; TEMP 98.9; O2SAT 100
== END 2025-05-01 22:21 | disposition home or self-care (01) ==
LOC: EDH 19:47
DX: K80.20 Calculus of gallbladder without cholecystitis without obstruction (principal); I10 Essential (primary) hypertension; Z82.49 Family history of ischemic heart disease and other diseases of the circulatory system; Z87.19 Personal history of other diseases of the digestive system
CPT/HCPCS: 99285; 96374; 76705; 96375; 80076; 80048; 83690; 85025; 81001; 81025; 36415; J1885; J1308; J2405

== ENCOUNTER 2025-06-16 22:31 | Emergency (ER) | payer MEDICAID ==
[~2025-06-16] VITALS: Ht 154.9 cm; Wt 129.3 kg
[~2025-06-16 22:31] MED LIST changes: +KETO10TA2 PO
[2025-06-16 22:56] LABS: IMMATURE GRANULOCYTE ABSOLUTE 0.06 K/uL (0-1); NUCLEATED RED BLOOD CELLS 0.0 % (0.0-0.19); PLATELET COUNT (AUTO) 355 K/uL (130-400); RED BLOOD CELL COUNT(AUTO) 4.43 MIL/uL (4.00-5.50); RED CELL DISTRIBUTION WIDTH 17.5 % (11.0-15.5); WHITE BLOOD COUNT (AUTO) 7.4 K/uL (4.8-10.8)
--- NOTE | 2025-06-16 23:01 | NUR ---
PT CARE ASSUMED AT THIS TIME
[2025-06-16 23:13] LABS: CREATININE 0.7 mg/dL (0.5-1.0); GLOMERULAR FILTR. RATE CALC 118.0 mL/min (>90); GLUCOSE,RANDOM 121.0 mg/dL (70-105); SODIUM SERUM 139.0 mmol/L (136-145); UREA NITROGEN, BLOOD 11.0 mg/dL (7-18)
[2025-06-16 23:18] LABS: CREATINE KINASE, TOTAL 173.0 U/L (21-232)
[2025-06-16 23:50] LABS: AMPHET/METH SCREEN,URINE NEGATIVE (NEGATIVE); BARBITURATE SCREEN, URINE NEGATIVE (NEGATIVE); CANNABINOID SCREEN,URINE NEGATIVE (NEGATIVE); COCAINE SCREEN,URINE NEGATIVE (NEGATIVE)
--- NOTE | 2025-06-17 00:02 | HMCIMG ---
EXAM: CR Chest, 1 view CLINICAL HISTORY: Chest pain. COMPARISON: None provided. FINDINGS: The lungs show no infiltrates or other acute findings. No pleural effusion or pneumothorax. The cardiomediastinal silhouette is within normal limits. No acute osseous abnormality. IMPRESSION: No acute cardiopulmonary process is evident. /[place]
[2025-06-17] MEDS ORDERED: FERR324T4 PO (01:11)
[2025-06-17 01:12] VITALS: BP 148/81; PULSE 83; RESP 15; TEMP 97.8; O2SAT 99
--- NOTE | 2025-06-17 01:12 | ERN ---
General Chief Complaint: Chest Pain Stated Complaint: CHEST PAIN, DIZZINESS Time Seen by MD: 22:35 Time Seen by Midlevel: 22:35 Source: patient History of Present Illness Initial Comments 34-year-old female presents to the emergency department for evaluation of chest pain and dizziness when standing that started prior to arrival. Denies any other symptoms Allergies: Coded Allergies: No Known Drug Allergies (Unverified Allergy, Unknown, 06/08/22) Home Meds Active Scripts Ferrous Sulfate (Ferrous Sulfate) 324 Mg (65 Mg Iron) Tablet.dr, 1 TAB PO DAILY for 15 Days, #15 TAB 0 Refills Prov:SHANIQUE HELLER [facility] 06/17/25 Ketorolac Tromethamine (Ketorolac Tromethamine) 10 Mg Tablet, 1 TAB PO Q6HPRN PRN for pain for 3 Days, #12 TAB 0 Refills Prov:[facility] 05/01/25 Naproxen (Naproxen) 375 Mg Tablet.dr, 375 MG PO BID for 7 Days, #14 TAB Prov:TOM DARDEN MD 06/20/24 Metronidazole (Flagyl) 375 Mg Capsule, 375 MG PO BID for 7 Days, #14 CAP Prov:SHANIQUE HELLER [facility] 03/12/24 Ciprofloxacin HCl (Cipro) 500 Mg Tablet, 1 TAB PO BID for 7 Days, #14 TAB 0 Refills Prov:SHANIQUE HELLER [facility] 03/12/24 Loperamide HCl (Imodium) 2 Mg Cap, 2 MG PO TID PRN for DIARRHEA, #15 CAP 0 Refills Prov:LISA LIZARRAGA MD 06/20/23 Ondansetron (Ondansetron Odt) 4 Mg Tab.rapdis, 4 MG PO TID PRN for NAUSEA, #30 TAB 0 Refills Prov:LISA LIZARRAGA MD 06/20/23 Famotidine (Famotidine) 20 Mg Tablet, 20 MG PO BID, #30 TAB Prov:CARL TOMASP 03/15/23 Cephalexin Monohydrate (Keflex) 500 Mg Cap, 500 MG PO QID for 7 Days, #28 CAP Prov:CARL TOMAS 03/15/23 Amoxicillin/Potassium Clav (Amox Tr-K Clv 875-125 mg Tab) 1 Each Tablet, 1 EACH PO BID for 7 Days, #14 TAB Prov:MEHREEN ROWLAND MD 09/09/22 Ondansetron (Ondansetron Odt) 4 Mg Tab.rapdis, 4 MG PO TID for NAUSEA, #15 TAB Prov:MEHREEN ROWLAND MD 09/09/22 Ibuprofen (Ibuprofen) 600 Mg Tablet, 600 MG PO Q6H PRN for PAIN, #30 TAB Prov:MEHREEN ROWLAND MD 09/09/22 Amoxicillin/Potassium Clav (Amox Tr-K Clv 875-125 mg Tab) 1 Each Tablet, 1 EACH PO BID for 7 Days, #14 TAB Prov:VIOLETTE KAUFMAN AGACNP 06/10/22 Past Medical History Past Medical History: Hypertension, Other Medical History Other: GASTRITIS Past Surgical History: Other, Surgical History Other: COLON RESECTION Family History Family History: HTN Social History Social History: Negative, Lives with family Female( History) History: Not Applicable : 5 Para: 4 Aborts: 1 ROS Dictation CONSTITUTIONAL: Negative except for HPI HEAD/FACE: Negative except for HPI EENT: Negative except for HPI RESPIRATORY: Negative except for HPI GASTROINTESTINAL/ABDOMINAL: Negative except for HPI GENITOURINARY: Negative except for HPI MUSCULOSKELETAL: Negative except for HPI INTEGUMENTARY: Negative except for HPI NEUROLOGICAL/PSYCH: Negative except for HPI HEMATOLOGIC/LYMPHATIC: Negative except for HPI All Systems Negative, Except as noted above. 13 point review of systems assessed and all negative except for above. Physical Exam Physical Exam Dictation Vital Signs reviewed General Appearance: Alert, oriented x 3, no acute distress, well developed, nourished. Head and Face: non-traumatic. Eyes: PERRL, pink conjunctivas, eyelid no trauma, anterior chamber with arcus senilis. Ears: Pinnas intact and no signs of trauma or erythema ear canals clear and no discharge TM no erythema Nose: No discharge, no bleeding. Oropharynx: Mouth normal, tongue pink, pharynx clear,no erythema, tonsils no exudates, no abscesses noted, mucous membrane moist Neck: Supple, non-tender, no thyromegaly, no masses, no JVD, no bruits Breast:Deferred Chest:No tenderness, no crepitus, no paradoxical movement, no retractions Lungs:Clear, well-ventilated, symmetric, no rales, no wheezing, no rhonchi, no stridor, good breath sounds bilaterally Heart: Regular rate, regular rhythm, no murmur, no gallops Vascular: no peripheral edema, Abdomen: Soft, positive bowel sounds, nondistended, no guarding, nontender, no rebound, no masses no hepatomegaly, no splenomegaly, no Crowder's sign, no hernias. Rectal: Deferred Genital: Deferred Neurological: Normal speech, motor function intact, sensory function intact Musculoskeletal: Neck nontender, full range of motion, back nontender, full range of motion, Extremities: nontender, full range of motion Skin: Color pink, dry, no turgor, no rash, no lacerations, no abrasions, no contusions. Lymphatic: Deferred Results Laboratory and Microbiology Lab and Micro Result Laboratory Tests Test 06/16/25 20:49 06/16/25 22:24 06/17/25 00:31 White Blood Count 7.4 K/uL (4.8-10.8) Red Blood Count 4.43 MIL/uL (4.00-5.50) Hemoglobin 8.7 g/dL (12.0-16.0) L Hematocrit 30.5 % (36-48) L Mean Corpuscular Volume 68.8 fL (79-99) L Mean Corpuscular Hemoglobin 19.6 pg (27.0-33.0) L Mean Corpuscular Hemoglobin Concent 28.5 g/dL (32.0-36.0) L Red Cell Distribution Width 17.5 % (11.0-15.5) H Platelet Count 355 K/uL (130-400) Mean Platelet Volume 9.3 fL (7.5-10.5) Immature Granulocyte % (Auto) 0.8 % (0-1) Neutrophils (%) (Auto) 55.5 % (40.0-77.0) Lymphocytes (%) (Auto) 34.5 % (21.0-51.0) Monocytes (%) (Auto) 6.9 % (3.0-13.0) Eosinophils (%) (Auto) 2.0 % (0.0-8.0) Basophils (%) (Auto) 0.3 % (0.0-5.0) Neutrophils # (Auto) 4.1 K/uL (1.8-7.7) Lymphocytes # (Auto) 2.6 K/uL (1.0-4.8) Monocytes # (Auto) 0.5 K/uL (0.1-1.0) Eosinophils # (Auto) 0.15 K/uL (0.00-0.70) Basophils # (Auto) 0.02 K/uL (0.00-0.20) Absolute Immature Granulocyte (auto 0.06 K/uL (0-1) Nucleated Red Blood Cells 0.0 % (0.0-0.19) Red Blood Cell Morphology See comments Sodium Level 139 mmol/L (136-145) Potassium Level 3.5 mmol/L (3.5-5.1) Chloride Level 106 mmol/L (101-111) Carbon Dioxide Level 28 mmol/L (21-32) Blood Urea Nitrogen 11 mg/dL (7-18) Creatinine 0.7 mg/dL (0.5-1.0) Glomerular Filtration Rate Calc 118 mL/min (>90) Random Glucose 121 mg/dL (70-105) H Total Calcium 8.3 mg/dL (8.5-10.1) L Magnesium Level 1.90 mg/dL (1.80-2.40) Total Creatine Kinase 173 U/L (21-232) # Troponin I High Sensitivity 4 ng/L (4-50) < 4 ng/L (4-50) L Serum Test, Qualitative NEGATIVE (NEGATIVE) Urine Opiates Screen NEGATIVE (NEGATIVE) Urine Barbiturates Screen NEGATIVE (NEGATIVE) Urine Phencyclidine Screen NEGATIVE (NEGATIVE) Urine Amphetamines Screen NEGATIVE (NEGATIVE) Urine Benzodiazepines Screen NEGATIVE (NEGATIVE) Urine Cocaine Screen NEGATIVE (NEGATIVE) Urine Marijuana (THC) Screen NEGATIVE (NEGATIVE) Labs Reviewed?: Yes MDM MDM: Differential diagnosis: Anemia, dehydration, electrolyte abnormality There are no social concerns with this patient. Prescription drug management Prescriptions will include: Done Medical management and examination interpretation discussions were had by me with other qualified healthcare professionals as indicated for the patient's care. ED Course Orders Procedure Category Date Status Time 12 Lead Ekg Tracing- EKG 06/16/25 Logged Technical 22:35 Cbc With Differential LAB 06/16/25 Complete 22:35 Basic Metabolic Panel LAB 06/16/25 Complete 22:35 Creatine Kinase, Total LAB 06/16/25 Complete 22:35 Drug Screen Urine LAB 06/16/25 Complete 22:35 Testing, LAB 06/16/25 Complete Serum Hcg 22:35 Magnesium LAB 06/16/25 Complete 22:35 Troponin I High LAB 06/16/25 Complete Sensitivity 22:35 Chest 1vw RAD 06/16/25 Resulted 22:35 Troponin I High LAB 06/17/25 Complete Sensitivity 00:22 Vital Signs Date Time Temp Pulse Resp B/P (MAP) Pulse Ox O2 Delivery O2 Flow Rate FiO2 06/16/25 23:34 94 20 122/64 99 Room Air* 0 06/16/25 23:01 97.9 103 16 109/49 99 Room Air* 0 21 06/16/25 22:33 98.1 103 18 110/76 99 Room Air 0 DX & DISP Disposition: Discharge Departure Impression: Primary Impression: Chronic anemia Additional Impression: Non-cardiac chest pain Condition: Stable Scripts Ferrous Sulfate (Ferrous Sulfate) 324 Mg (65 Mg Iron) Tablet.dr 1 TAB PO DAILY for 15 Days, #15 TAB 0 Refills Prov: SHANIQUE HELLER PAC 06/17/25 Additional Instructions: Your blood work today shows a hemoglobin level of 8.6 consistent with your history of chronic anemia. I have given you a prescription for iron supplementations which should help improve your anemia over the next couple of days. Your EKG and cardiac enzymes are normal. The remainder of your blood work is unremarkable. Please keep your appointment with the derrick helper tomorrow. Referrals: SELF,REFERRAL (PCP) Time of Disposition: 01:10 I have reviewed the case, and I agree with, Diagnosis and Plan I performed the substantive portion of the visit. I have reviewed and personally made and approve the management plan that is documented in the note by myself or the DEB. I acknowledge for responsibility for the patient's management plan. SHANIQUE HELLER PAC Jun 17, 2025 01:12
--- NOTE | 2025-06-17 08:04 | EKG ---
[facility] Test Date: 2025-06-16 Test Time: 22:38:18 Pat Name: GINGER BOSWELL Department: ED Room: Gender: F [employer] Observer: [id number] : 1990 Requested By: SHANIQUE HELLER Order Number: [id number] Reading MD: Jose Carlos Aquino Measurements Intervals [place] Rate: 100 P: 57 WA: 161 QRS: 31 QRSD: 100 T: 68 QT: 358 QTc: 464 Interpretive Statements Sinus tachycardia Right Bundle Branch Block Nonspecific T abnormalities, anterior leads Compared to ECG 03/15/2023 10:56:16 T-wave abnormality now present Sinus rhythm no longer present Electronically Signed On 06-18-2025 08:22:33 [employer] by Jose Carlos Aquino Please click the below link to view image of tracing.
== END 2025-06-17 01:24 | disposition home or self-care (01) ==
LOC: EDH 22:31
DX: D64.9 Anemia, unspecified (principal); R07.89 Other chest pain; I10 Essential (primary) hypertension; R42 Dizziness and giddiness; Z87.19 Personal history of other diseases of the digestive system; Z98.890 Other specified postprocedural states; Z79.899 Other long term (current) drug therapy
CPT/HCPCS: 36415; 71045; 80048; 80305; 82550; 83735; 84484; 84703; 85025; 93005; 99285